=== PATIENT | female | born 1980 | race Caucasian/White ===

== ENCOUNTER → 2024-08-31 | Outpatient (CLI) | payer OTHER ==
--- NOTE | 2024-08-31 11:49 | US ---
EXAMINATION TYPE: US kidneys/renal and bladder DATE OF EXAM: 08/31/2024 COMPARISON: NONE CLINICAL INDICATION: Female, 44 years old with history of N20.0 CALCULUS OF KIDNEY; TECHNIQUE: Grayscale imaging of the bilateral kidneys and urinary bladder: FINDINGS: EXAM MEASUREMENTS: Right Kidney: 10.4 x 4.7 x 4.8 cm Left Kidney: 11.1 x 5.7 x 4.4 cm Right Kidney: multiple stones seen with largest at mid measuring 0.8cm Left Kidney: 0.7cm stone seen inferior pole Bladder: wnl Bilateral Jets seen: yes There is no evidence for hydronephrosis at this point in time. Multiple nonobstructive calculi within the right kidney with largest in the midportion measuring up to 0.8 cm. There is a nonobstructive 0. 7 cm calculus within the lower pole of the left kidney. No masses are identified. Cortical medullary differentiation is maintained bilaterally. The urinary bladder is anechoic. IMPRESSION: 1. No hydronephrosis. 2. Multiple nonobstructive bilateral renal calculi. [facility], , 08/31/2024 11:47 AM
== END | disposition home or self-care (01) ==
LOC: RADUSWWP 10:48
PROVIDERS: ATTEND Family Medicine
DX: N20.0 Calculus of kidney (principal)
CPT/HCPCS: 76770

== ENCOUNTER → 2024-11-09 | Day surgery (SDC) | payer OTHER ==
[2024-11-06 09:46] VITALS: BMI 21.4
[~2024-11-09] MED LIST: LIDOCAINE 1% (10MG/ML) FOR IV START INTRADERMA PRN; PROPOFOL 10 MG/ML 20 ML VIAL IV ONE
[2024-11-09] MEDS: LACTATED RINGERS 1,000 ML IV ONE (11:07)
[2024-11-09 11:24] VITALS: TEMP 99
[2024-11-09] MEDS: LACTATED RINGERS 1,000 ML IV SCH (11:26)
[2024-11-09 12:27] VITALS: RESP 16
[2024-11-09] MEDS: ACETAMINOPHEN TAB 325 MG TAB PO ONE (13:13)
[2024-11-09 13:19] VITALS: BP 110/76; PULSE 76
--- NOTE | 2024-12-13 16:00 | P.OP ---
Date of Procedure: 11/09/24 Preoperative Diagnosis: Screening Colonoscopy Postoperative Diagnosis: 1. Normal Colon 2. Suboptimal Prep Procedure(s) Performed: Colonoscopy Anesthesia: MAC Surgeon: Nicolas De La Cruz Pathology: none sent Condition: stable Disposition: PACU Description of Procedure: After informed consent was obtained, the patient was placed in the left lateral position. The patient was sedated. Monitoring was provided throughout the entire procedure. Digital rectal exam was performed revealing normal sphincter tone and no external hemorrhoids. The colonoscope was inserted into rectum and advanced under direct visualization, without difficulty, to the cecum, where the cecal strap, appendiceal orifice, and the ileocecal valve were identified. The quality of the preparation was suboptimal. The colonoscope was then withdrawn while carefully examining the mucosa. The colonic mucosa appeared normal with normal vascularity and haustral markings. No masses, AVM/s diverticula, or polyps were seen. On retroflexed view in the rectum, there were no internal hemorrhoids. The endoscope was removed and the procedure terminated. The patient will need a repeat scope in 2-3 years due to suboptimal prep. The patient tolerated the procedure well without complications.
== END ==
LOC: ORWHC2ENDO 10:47
PROVIDERS: ATTEND Surgery
DX: Z12.11 Encounter for screening for malignant neoplasm of colon (principal)
CPT/HCPCS: 81025; 45378; J2704

== ENCOUNTER → 2025-01-07 | Outpatient (CLI) | payer OTHER ==
--- NOTE | 2025-01-07 11:46 | MR ---
EXAMINATION TYPE: MR brain wo/w con DATE OF EXAM: 01/07/2025 10:32 AM COMPARISON: Comparison images are available at this location CLINICAL INDICATION: Female, 44 years old with history of R51.9 headache, Acute onset headaches, dizz iness, numbness in upper extremities TECHNIQUE: Multiplanar, multiecho imaging on a 3.0 Elo magnet is performed through the brain. Stud y is performed within 24 hours of arrival to the hospital.Multiplanar, multiecho imaging on a 3.0 Melony la magnet is performed through the knee. IV Contrast: 5.5 mL Gadobutrol (None, if empty) FINDINGS: The craniovertebral junction is normal. The pituitary is normal. Diffusion-weighted imaging is performed. No abnormal hyperintensity is present to suggest an acute i ntracranial infarct or acute ischemic change. Signal through the brain appears normal Ventricles and sulci are appropriate for the patient age. No abnormal enhancement is evident IMPRESSION: 1. No acute intracranial process. [facility], , 01/07/2025 11:43 AM
== END | disposition home or self-care (01) ==
LOC: RADMRIMAIN 09:33
PROVIDERS: ATTEND Family Medicine
DX: R51.9 Headache, unspecified (principal)
CPT/HCPCS: 70553; A9585